=== PATIENT | female | born 1980 | race Caucasian/White ===

== ENCOUNTER 2021-08-21 19:54 | Emergency (ER) | payer MEDICAID, SELFPAY ==
[2021-08-21] MEDS ORDERED: Acetaminophen 500 MG TAB ONE (20:15)
[2021-08-21] MEDS ORDERED: methylPREDNISolone Acetate 40 mg/ml Vial ONE (20:57)
[2021-08-21] MEDS ORDERED: traMADol HCl 50 MG TAB ONE (20:57)
[2021-08-21] MEDS ORDERED: Ondansetron ODT 4 MG TAB ONE (21:03)
[2021-08-22 20:18] LABS: SARS-CoV-2 PCR by NAA Not Detected (NotDetected)
== END 2021-08-21 21:31 | disposition home or self-care (01) ==
LOC: NAV ERS 19:54
DX: B34.9 Viral infection, unspecified (principal); J06.9 Acute upper respiratory infection, unspecified; Z20.822 Contact with and (suspected) exposure to COVID-19; F17.210 Nicotine dependence, cigarettes, uncomplicated; Z86.711 Personal history of pulmonary embolism; Z87.01 Personal history of pneumonia (recurrent)
CPT/HCPCS: 87804; 96372; 99283; J2920; Q0162; U0003; U0005

== ENCOUNTER 2021-08-28 00:13 | Emergency (ER) | payer SELFPAY ==
[2021-08-28] MEDS ORDERED: Azithromycin 250 MG TAB ONE ×2 (00:35→00:37)
== END 2021-08-28 00:40 | disposition home or self-care (01) ==
LOC: NAV ERS 00:13
DX: R05.1 Acute cough (principal); Z79.899 Other long term (current) drug therapy; E66.9 Obesity, unspecified; F17.210 Nicotine dependence, cigarettes, uncomplicated
CPT/HCPCS: 99283